=== PATIENT | male | born 1945 | race Caucasian/White ===

== ENCOUNTER → 2023-11-29 08:49 | Outpatient (REF) | payer MEDICARE, OTHER, SELFPAY | LOC: RCS 08:49 | PROVIDERS: ATTENDING PHYSICIAN Nurse Practitioner; FAMILY PHYSICIAN Family Medicine | DX: E78.5 Hyperlipidemia, unspecified (principal); I10 Essential (primary) hypertension; I45.10 Unspecified right bundle-branch block; R01.1 Cardiac murmur, unspecified | CPT/HCPCS: 93306 ==

== ENCOUNTER 2024-09-25 06:19 | Day surgery (SDC) | payer MEDICARE, OTHER, SELFPAY | END 2024-09-25 09:03 | disposition home or self-care (01) | LOC: GI 06:19 | PROVIDERS: ATTENDING PHYSICIAN Internal Medicine Gastroenterology | DX: Z12.11 Encounter for screening for malignant neoplasm of colon (principal); D12.2 Benign neoplasm of ascending colon; K57.30 Diverticulosis of large intestine without perforation or abscess without bleeding; K64.8 Other hemorrhoids | CPT/HCPCS: 45385; 88305 ==

== ENCOUNTER 2025-02-10 19:37 | Emergency (ER) | payer MEDICARE, OTHER, SELFPAY ==
[2025-02-10 19:47] VITALS: BP 176/84
[2025-02-10 20:09] LABS: Hematocrit 45.6 % (39.0-52.0); Hemoglobin 15.1 g/dL (13.0-18.0); Mean Corp Hgb Conc. 33.1 g/dL (33.0-37.0); Mean Corpuscular Volume 89.6 fL (80.0-94.0); Nucleated Red Blood Cells % 0 % (-); Platelet Count 276 10^3/uL (130-400); Red Cell Dist. Width 14.0 % (11.5-14.5)
[2025-02-10 20:18] LABS: INR 1.11; PT 14.6 Sec (11.4-14.6)
[2025-02-10 20:19] LABS: APTT 28.2 Sec (23.4-35.0)
[2025-02-10 20:28] LABS: ALT (SGPT) 28 U/L (0-50); AST (SGOT) 24 U/L (17-59); Albumin 4.6 g/dl (3.5-5.0); Alkaline Phosphatase 133 U/L (38-126); Blood Urea Nitrogen 21 mg/dl (9-20); Calcium 9.7 mg/dl (8.4-10.2); Carbon Dioxide 27 mmol/L (22-30); Chloride 104 mmol/L (98-107); Glucose 93 mg/dl (70-99); Potassium 4.2 mmol/L (3.5-5.1); Sodium 138 mmol/L (135-145); Total Protein 7.3 g/dl (6.3-8.2); eGFR > 60.00
[2025-02-10 22:39] VITALS: BP 169/87
[2025-02-10 22:40] VITALS: BMI 28.3
[2025-02-10 23:00] VITALS: BP 162/83
--- NOTE | 2025-02-10 23:31 | ED.GENMED ---
History of Present Illness
General
Chief Complaint: Skin Problem
Source: patient
Exam Limitations: none
Time Seen by Provider: 02/10/25 23:30
Nursing documentation reviewed up to this point in time: agreed with
History of Present Illness
History of Present Illness:
Note:
CHIEF COMPLAINT(S)
Bruising on the abdomen.
HISTORY OF PRESENT ILLNESS
The patient is a 80-year-old male with a history of stroke nine years ago, currently taking Plavix (clopidogrel), diverticulitis, hypertension, CVA presenting with unusual yellow bruising on the abdomen, noticed this morning. The patient reports no
pain associated with the bruising and denies any recent trauma to the area. The bruising appeared spontaneously, and he visited an orthopedic doctor noting early-stage arthritis in the left joint. The orthopedic physician directed the patient to
take ibuprofen, 600 mg three times a day, in addition to performing physical therapy, which has not yet started. Although the patient reports improved mobility, the unusual bruising prompted a visit to urgent care, resulting in a referral to this
facility. The patient mentions he has not experienced any similar bruising episodes before.
Reportedly, he has been feeling fine overall with no symptoms such as vomiting. Urgent care conducted blood tests, revealing normal blood levels, liver functions, and kidney functions. The healthcare team here noted stable vital signs, and the
patient denies any history of using heating pads or applications to the bruised area. Theres no recollection of any recent events that could have caused the bruising.
CHRONIC MEDICAL CONDITIONS SIGNIFICANTLY AFFECTING CARE
- History of stroke (9 years ago)
- Arthritis
REVIEW OF SYSTEMS
- Gastrointestinal: Bruising present on the abdomen.
- Musculoskeletal: Arthritis in the left joint, improved mobility.
PHYSICAL EXAM
Nursing notes reviewed and vital signs reviewed.
General: Patient is well appearing and in no acute distress; non-toxic
Skin: Warm and dry, no rashes or lesions, small area of bruising noted in the epigastrium
Head: Normocephalic, atraumatic
Eyes: Sclera non-icteric. EOMs intact.
Cardiac: Regular rate and rhythm, no murmurs
Peripheral Vascular: No lower extremity swelling or edema
Pulm: Normal respiratory effort, no wheezes, rales, rhonchi
Abdomen: No abdominal tenderness to palpation
Neuro: CN II-XII intact, no focal neurologic deficits.
Psychiatric: Appropriate mood and affect.
PROBLEM LIST
Acute:
- Unexpected abdominal bruising
Chronic:
- History of stroke
- Arthritis
PLAN
- CBC, CMP, PT, INR, lipase
DIFFERENTIAL DIAGNOSIS
The Differential Diagnosis includes, in no particular order and is not limited to:
- Spontaneous hematoma due to anticoagulation
- Pancreatitis
- Trauma (unrecognized minor trauma or bumping)
- Coagulopathy
- Liver disease (though liver function tests are normal)
- Abnormal platelet function or count
- Connective tissue disorder
- Drug-induced bruising (from clopidogrel and ibuprofen combination)
- Vascular abnormalities
- Hemophilia or other bleeding disorders
Disposition:
SUMMARY OF ENCOUNTER
A 80-year-old male with a past medical history of stroke, currently on clopidogrel, presented to the emergency department with concerns of yellow bruising (ecchymosis) to the upper abdomen. The bruising was noted after starting Advil (ibuprofen) for
osteoarthritis. The patient reported no pain or history of trauma to the abdomen. He was previously evaluated at an urgent care facility and was advised to visit the emergency department. The physical exam revealed no abdominal tenderness he does
have a small area of epigastric bruising. Laboratory work, including lipase, was normal and showed no signs of acute internal bleeding.
PLAN
- Discontinue ibuprofen to avoid further risk of bruising given the patients anticoagulation with clopidogrel.
- Prescribe a Medrol dose pack (methylprednisolone) for acute pain management instead of ibuprofen.
- The patient is advised to follow up with orthopedic services for continued management of osteoarthritis.
INDEPENDENT REVIEW OF LABS AND INTERPRETATION OF TESTS
My independent review of lab results indicates that lipase is normal, and other blood work shows no indications of acute internal bleeding.
PATIENT EDUCATION AND COUNSELING
The patient was advised to discontinue the use of ibuprofen due to an increased risk of bleeding while on clopidogrel. The use of methylprednisolone as an alternative for pain management was discussed. The importance of follow-up with the orthopedic
specialist was emphasized.
FOLLOW-UP INSTRUCTIONS
The patient is to follow up with orthopedic services as planned.
MEDICATION RECONCILIATION
- Clopidogrel (Plavix) for stroke prevention.
- Discontinue ibuprofen due to risk of bleeding.
- Methylprednisolone (Medrol dose pack) prescribed for acute pain management.
MEDICAL DECISION MAKING
- Number and Complexity of Problems Addressed: Chronic conditions affecting care include a history of stroke and arthritis. Differential diagnoses include spontaneous hematoma due to anticoagulation, pancreatitis, trauma, coagulopathy, liver
disease, abnormal platelet function, connective tissue disorder, drug-induced bruising, vascular abnormalities, and hemophilia.
- Data:
Category 1:
- Lab tests reviewed include CBC and lipase levels; normal results with no signs of internal bleeding or pancreatitis.
- Risk:
- Prescription drug management involving the discontinuation of ibuprofen due to bleeding risk with clopidogrel.
- Consideration of Admission/Observation: Escalation of care including admission/observation was considered given the complexity and risk of the patients presenting complaint, exam findings, and underlying comorbidities. However, ultimately I feel
the patient is safe for outpatient management with close follow-up. Reasoning: Work-up reassuring, does not reveal any acute life/organ threatening processes, patients symptoms well controlled upon reevaluation, reexamination is reassuring, vitals
are stable, patient agreeable with discharge, reliable for follow-up.
DIAGNOSIS
- Ecchymosis, unspecified (R23.3)
- Osteoarthritis, unspecified site (M19.90)
Past History
Past History
ED Past Medical History: CVA, HTN, Other (CHRISTIANO) and Other (GI bleeding); Negative IDDM or NIDDM
ED Past Surgical History: Other (two hernia repairs)
Social History
Tobacco: Non-smoker
Alcohol: Occasional
Drug: None
Personal:
Living: with family
Employment: Employed
Family History
Family History: Other (Sister with stroke)
Review of Systems
Review of Systems
All Other Systems: ROS reviewed and negative except as documented in HPI and ROS
Phy Exam
Physical Exam
Physical Exam:
see hpi
Course
Orders/Labs/Results
Orders:
Orders
02/10/25 20:00
Complete Blood Count/With Diff Urgent
Comprehensive Metabolic Panel Urgent
Comment: .
Lipase Urgent
Comment: ADD ON
PTT Urgent
Prothrombin Time Urgent
02/10/25 23:40
Add On- LAB Urgent
Tests Added?: lipase
Abnormal Lab Results
02/10/25
20:00
MPV 11.2 H fL
(7.4-10.4)
Absolute Monos (auto) 0.8 H 10^3/uL
(0.1-0.6)
BUN 21 H mg/dl
(9-20)
Alkaline Phosphatase 133 H U/L
(38-126)
02/10/25 20:00
02/10/25 20:00
Vital Signs
Initial and Last Documented VS:
Initial Vital Signs
Temp Pulse Resp BP Pulse Ox
98.1 F 57 20 176/84 95
02/10/25 19:47 02/10/25 19:47 02/10/25 19:47 02/10/25 19:47 02/10/25 19:47
Last Documented Vital Signs
Temp Pulse Resp BP Pulse Ox
98.1 F 53 23 158/87 95
02/10/25 19:47 02/11/25 00:30 02/10/25 23:30 02/11/25 00:00 02/11/25 00:30
*Pulse Oximetry
SaO2: 91
Oxygen Mode of Delivery: Room air
Patient hypoxic: no
*Critical Care Note
Total Time (30-74mins, 75-104mins- exclusive of procedures): Not Applicable
ED Attending Note
-
Portions of this chart may have been created with voice recognition software.� Occasional wrong word or��sound alike� substitutions may have occurred due to the inherent limitations of voice recognition software.
Discharge Plan
Departure
Patient Disposition: Home (Routine Discharge)
Date of Disposition: 02/11/25
Time of Disposition: 00:38
Patient with high blood pressure during this ER visit?: Yes
Condition: Good
Discharge Problem:
Superficial bruising of abdominal wall
Instructions: Taking care of bruises, BLOOD PRESSURE
Prescriptions:
New
methylprednisolone [Medrol (Manuelito)] 4 mg tablets,dose pack
See Rx Instructions .ROUTE .COMPLEX Qty: 21 0RF
Rx Instructions:
orally per package directions
No Action
verapamil [Calan SR] 120 MG tablet extended release
120 mg PO DAILY
fiber 1 EACH tablet
2 tab PO HS
hydrochlorothiazide 25 MG tablet
25 mg PO DAILY
vitamin E 400 UNIT capsule
400 unit PO DAILY
chlorpheniramine-acetaminophen [Coricidin HBP Cold and Flu] 1 EACH tablet
1 tab PO DAILY
atorvastatin 40 MG tablet
40 mg PO HS
clopidogrel 75 MG tablet
75 mg PO DAILY Qty: 21 0RF
Rx Instructions:
Ok to resume today
Referrals:
Aure Maxwell DO [Family Provider, Family Practice]
Activity Restrictions/Additional Instructions:
PLEASE RETURN TO THE ER SHOULD YOU DEVELOP CHEST PAIN, SHORTNESS OF BREATH, NAUSEA OR VOMITING, ABDOMINAL PAIN, DARK TARRY STOOLS, RECTAL BLEEDING, DARK TARRY STOOLS, VOMITING BLOOD, OR ANY OTHER SIGNS OR SYMPTOMS CONCERNING TO YOU.
Please follow up with your primary care provider. Please follow up with Dr. Garcia. Please stop taking the ibuprofen. Medrol Dosepak has been sent to your pharmacy, please follow package instructions for dosing.
Interventions
Interventions:
*Risk Screen - Suicide Last Done: 02/10/25 19:47
*General Assessment Last Done: 02/10/25 19:47
*Neglect/Abuse Screening Last Done: 02/10/25 19:47
*ED- Fall Risk Assessment Last Done: 02/10/25 19:47
*ED COVID-19 Vaccine History Last Done: 02/10/25 19:47
*Nursing Disposition Last Done: 02/11/25 00:50
ED-Skin Assessment Last Done: 02/10/25 22:48
Discharge Date and Time
Discharge Date/Time: 02/11/25 00:50
Print Language: TURKISH
[2025-02-11] VITALS: BP 158/87
[2025-02-11 00:11] LABS: Lipase 67 U/L (23-300)
== END 2025-02-11 00:50 | disposition home or self-care (01) ==
LOC: EMR 19:37
PROVIDERS: Emergency Medicine; EMERGENCY PHYSICIAN Emergency Medicine; FAMILY PHYSICIAN Family Medicine
DX: S30.1XXA Contusion of abdominal wall, initial encounter (principal); X58.XXXA Exposure to other specified factors, initial encounter; Z86.73 Personal history of transient ischemic attack (TIA), and cerebral infarction without residual deficits; I10 Essential (primary) hypertension; G47.33 Obstructive sleep apnea (adult) (pediatric); Z79.02 Long term (current) use of antithrombotics/antiplatelets
CPT/HCPCS: 99283; 80053; 83690; 85025; 85610; 85730

== ENCOUNTER 2025-07-08 06:14 | Day surgery (SDC) | payer MEDICARE, OTHER, SELFPAY ==
--- NOTE | 2025-06-03 10:18 | CM ---
Demographics: confirmed
Living situation: lives independently with
Support Person Post Operatively:
History of
VN: no
SNF: no
Outpatient: [facility] [place], Patient advised to make appointment for 1/2
Has patient purchased required equipment: patient instructed to purchase equipment at [facility]
PCP: confirmed
Pharmacy: [facility]
Post Operative Discharge Plan: Home SDS with [facility] and then transition to outpatient PT
[2025-06-17 13:18] VITALS: BMI 29.2
[2025-06-17 13:50] LABS: Hematocrit 49.0 % (39.0-52.0); Hemoglobin 16.4 g/dL (13.0-18.0); Mean Corp Hgb Conc. 33.5 g/dL (33.0-37.0); Mean Corpuscular Volume 92.5 fL (80.0-94.0); Platelet Count 323 10^3/uL (130-400); Red Cell Dist. Width 13.8 % (11.5-14.5)
[2025-06-17 14:18] VITALS: BMI 29.2
[2025-06-17 14:33] LABS: ALT (SGPT) 26 U/L (0-50); AST (SGOT) 25 U/L (17-59); Albumin 4.8 g/dl (3.5-5.0); Alkaline Phosphatase 160 U/L (38-126); Blood Urea Nitrogen 12 mg/dl (9-20); Calcium 10.2 mg/dl (8.4-10.2); Carbon Dioxide 26 mmol/L (22-30); Chloride 104 mmol/L (98-107); Estimated Creatinine Clearance 55 ml/min; Glucose 91 mg/dl (70-99); Potassium 4.4 mmol/L (3.5-5.1); Sodium 138 mmol/L (135-145); Total Protein 7.8 g/dl (6.3-8.2); eGFR > 60.00
[2025-06-17 14:40] LABS: Glycohemoglobin (HgbA1c) 5.7 % (4.0-5.9)
[2025-06-17 16:54] LABS: Vitamin D, 25-OH*** 42.2 ng/mL (30-80)
--- NOTE | 2025-06-24 11:36 | VNURNOTE ---
Patient is scheduled for an elective L THR on 07/08 - he is a same day patient with Dr Garcia . Spoke with patient prior to surgery. Introduced role of [facility] Liaison. Patient reports that he lives with his .
He has DME including a rolling walker.
PCP is Dr Aure Maxwell
Discussed [facility] joint protocol and post surgical plans.
Reviewed that he will have VN services initially and will then start outpatient PT.
Patient selects [facility] for his home care needs and would like to go to Outpt PT at [place] for outpatient PT. Scheduled TBD. He stated he called 2 weeks ago and left a message. Advised pt to call them again and to schedule for the FRI of the
surgical week (07/11). Pt verbalized understanding. Advised patient to bring rolling walker with him on day of surgery.
Referral placed in [facility].
Plan: [facility] per [facility] joint protocol 07/08 then outpt PT - TBD
[2025-07-08] VITALS (21 sets, daily range): BP systolic 75–151; BP diastolic 53–87; BMI 29.2
[2025-07-08] MEDS: BACTROBAN NASAL 1 GRAM NASAL (08:48)
[2025-07-08] MEDS: CELEBREX 200 MG PO (08:48)
[2025-07-08] MEDS: NORMOSOL-R/PLASMALYTE-A 1000 IV (08:49)
[2025-07-08] MEDS: VANCOCIN 530 MG IV (09:05)
[2025-07-08] MEDS: TYLENOL 1000 MG PO (09:17)
--- NOTE | 2025-07-08 09:21 | W.DS.TRANS ---
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
-
Discharge Instructions:
Discharge Diagnosis/Procedures [facility] Dr Garcia 07/08/25
Diet As tolerated
Activity With Walker
Driving Restrictions No driving
Bathing Restrictions OK to Shower
Other Services PT
Instructions:
Stand-Alone Forms: SDS Total Hip and Knee D/C
Changes to Home Medications: Yes
Discharge Medications:
DC Medications w/original date entered in [facility]
atorvastatin 40 mg tablet 40 mg PO DAILY 08/03/20
clopidogrel 75 mg tablet 75 mg PO DAILY ##21 08/03/20
Held on 07/08/25. Instructions: Resume on 07/10/25.
allopurinol 300 mg tablet 300 mg PO DAILY 06/13/25
cholecalciferol (vitamin D3) 25 mcg (1,000 unit) capsule (Vitamin D3) 25 mcg PO DAILY 06/13/25
famotidine 20 mg tablet 20 mg PO BID 06/13/25
inulin-sorbitol 2 gram chewable tablet 2 tab PO QPM 06/13/25
Held on 07/08/25. Instructions: Resume on 07/16/25.
mecobalamin (vitamin B12) 1,000 mcg chewable tablet (B12 Active) 1,000 mcg PO DAILY 06/13/25
verapamil 120 mg tablet,extended release 120 mg PO DAILY 06/13/25
mupirocin 2 % topical ointment 1 applic topical BID infection prevention #1 tube 06/16/25
dexamethasone 4 mg tablet 4 mg PO BID inflammation #6 tabs 06/17/25
gabapentin 300 mg capsule 300 mg PO HS sleep/pain #10 caps 06/17/25
ondansetron 4 mg disintegrating tablet 4 mg PO Q6H PRN n/v #20 tabs 06/17/25
oxycodone 5 mg tablet 5 mg PO Q6H PRN 1 tab moderate pain, 2 tabs severe pain #30 tabs 06/17/25
acetaminophen 325 mg tablet (Tylenol) 650 mg (2 x 325 mg) PO QID #0 tabs 07/08/25
aspirin 325 mg tablet 325 mg PO DAILY blood clot prevention #1 tab 07/08/25
docusate sodium 100 mg capsule (Colace) 100 mg PO BID stool softner #1 cap 07/08/25
losartan 100 mg tablet 100 mg PO HS #0 tabs 07/08/25
magnesium hydroxide 400 mg/5 mL oral suspension (Milk of Magnesia) 30 ml PO HS PRN constipation #1 mL 07/08/25
penicillin V potassium 1 tab PO QID dental procedure 07/08/25
sennosides 8.6 mg tablet (Senokot) 17.2 mg (2 x 8.6 mg) PO BID laxative #2 tabs 07/08/25
Home Medication Changes
mupirocin 2 % topical ointment 1 applic topical BID infection prevention #1 tube 06/16/25
dexamethasone 4 mg tablet 4 mg PO BID inflammation #6 tabs 06/17/25
gabapentin 300 mg capsule 300 mg PO HS sleep/pain #10 caps 06/17/25
ondansetron 4 mg disintegrating tablet 4 mg PO Q6H PRN n/v #20 tabs 06/17/25
oxycodone 5 mg tablet 5 mg PO Q6H PRN 1 tab moderate pain, 2 tabs severe pain #30 tabs 06/17/25
acetaminophen 325 mg tablet (Tylenol) 650 mg (2 x 325 mg) PO QID #0 tabs 07/08/25
aspirin 325 mg tablet 325 mg PO DAILY blood clot prevention #1 tab 07/08/25
docusate sodium 100 mg capsule (Colace) 100 mg PO BID stool softner #1 cap 07/08/25
losartan 100 mg tablet 100 mg PO HS #0 tabs 07/08/25
magnesium hydroxide 400 mg/5 mL oral suspension (Milk of Magnesia) 30 ml PO HS PRN constipation #1 mL 07/08/25
penicillin V potassium 1 tab PO QID dental procedure 07/08/25
sennosides 8.6 mg tablet (Senokot) 17.2 mg (2 x 8.6 mg) PO BID laxative #2 tabs 07/08/25
Pending Results: No
--- NOTE | 2025-07-08 11:56 | OR.RPT ---
Operative Report
Operative Report
Orthopaedic Surgery Operative Note
DATE OF OPERATION: 07/08/2025
PREOPERATIVE DIAGNOSES: Osteoarthritis, left hip
POSTOPERATIVE DIAGNOSES: Same
OPERATION PERFORMED: Left total hip arthroplasty.
SURGEON: Basil Garcia MD
DATA WAREHOUSING SPECIALIST: Jarrod Mayo PA-C who helped with patient and limb positioning and retraction
ANESTHESIA: Spinal
COMPLICATIONS: None.
ESTIMATED BLOOD LOSS: 50 mL.
DRAINS: None
SPECIMEN: None
FINDINGS: Advanced articular cartilage wear on the femoral head and acetabulum.
IMPLANTS:
Biomet G7 Acetabular Shell, cluster hole, size 54
Biomet G7 Highly Crosslinked PE Liner, neutral
Seamus M/L Taper femoral stem, size 10 with standard neck length and standard offset
Biolox Ceramic Head, size 40mm +0
INDICATIONS: The patient presented to my office with debilitating left hip pain due to osteoarthritis. We reviewed the natural history of this problem, as well as the risks, benefits, and alternatives of various treatment options. The patient
exhausted all nonoperative treatment options and wished to proceed with hip replacement surgery. The patient understood the risks which included, but were not limited to, bleeding, infection, failure to relieve pain, more pain than preop, damage to
blood vessels and nerves, need for reoperation, mechanical failure of the implants, wound healing problems, stiffness, instability, blood clot, pulmonary embolism, myocardial infarction, pneumonia, arrhythmia, CVA, and . The patient accepted
these risks and wished to proceed. All questions were answered, and informed consent was obtained.
PROCEDURE IN DETAIL: The patient was identified in the preoperative holding area. The left hip was identified as the operative site. The patient was taken in the operating room and transferred to the operative table. Spinal anesthesia was
performed. IV antibiotics and tranexamic acid were administered. The patient was placed in the lateral position with Stulberg hip positioners. Axillary roll was placed. The down leg was well padded. All bony prominences were well padded. The
operative limb was prepped and draped in the usual sterile fashion.
Time out was performed. A posterolateral approach to the hip was used. The skin incision was centered over the greater trochanter. This was taken down sharply through subcutaneous tissues. Meticulous hemostasis was achieved throughout the case with
electrocautery. We split the fascia madhuri in line with skin incision. I split the gluteus jaqui bluntly. We cauterized all crossing vessels as we split it. I palpated the sciatic nerve and made sure it was well posterior in the operative field. It
was protected throughout the case.
I performed a partial bursectomy to identify the short external rotators. The gluteus medius and minimus were identified and retracted anteriorly. I incised the piriformis tendon and conjoint tendon at their insertions. These were tagged for later
repair. I then performed a trapezoidal capsulotomy. The edges were tagged for later repair. I referenced the cut edge of the capsular flap to 2 fixed points on the greater trochanter for assistance with recreation of limb length and offset. I then
dislocated the hip posteriorly. I performed a femoral neck osteotomy approximately 10 mm above the lesser trochanter, as per preoperative templating. The femoral head measured 49 mm in outer diameter. The distance between the neck cut and center of
the femoral head was measured to be 40mm. I placed a curve hohmann retractor over the anterior lip of the acetabulum between the labrum and the anterior hip capsule. A second retractor was placed inferiorly just distal to the transverse acetabular
ligament. Circumferential view of the acetabulum was achieved. I incised the labrum and pulvinar with electrocautery. I started with a 49 mm reamer and reamed down to the medial wall. I then sequentially reamed up to a 53mm reamer. This gave a nice
bed of bleeding bone with excellent column support anteriorly and posteriorly. I impacted the acetabular shell in approximately 40 degrees of abduction and 20 degrees of anteversion. I matched the anteversion of the transverse acetabular ligament. I
also made sure that the anterior rim of the socket was not proud of the anterior wall to minimize the chance of iliopsoas tendinitis. I confirmed the cup was well-seated. I then impacted a neutral liner and confirmed it was well seated with the
locking mechanism.
On the femoral side, I use a box osteotome to open the proximal starting point. I found the canal with a Charnley awl and a lateralizing reamer. I then used the Seamus M/L taper broaches sequentially to prepare the femoral canal. The size 10 came to
a stop at the desired level and had excellent axial and rotational stability. We trialed with a trial ball head. The hip was taken through a complete range of motion. It was noted to be stable in extension without impingement. It was stable in the
position of sleep and in flexion with internal rotation. The limb length and offset were checked compared to the capsular flap and was appropriate. The measured length between the lesser trochanter and center of the femoral head was 40mm.
I removed the trials. I impacted the femoral implant to match the [place] version. It had excellent axial and rotational stability. Trial ball head was placed, and I reduced the hip and took the hip through a complete range of motion. There was no
impingement in external rotation and extension. Position of sleep was stable. At 90 degrees of flexion and slight adduction, the hip could be internally rotated to 90 degrees with no subluxation. I palpated the sciatic nerve, which was tension free
and unharmed. Based on our capsular flap measurement, we had restored the offset and leg length. The trial ball head was removed, and the final ball head was impacted onto a clean and dry Collins taper. The hip was reduced.
A dilute betadine soak was performed for approximately 3 minutes, and then the hip was copiously irrigated. I repaired the capsule, piriformis, and conjoint tendon with #2 Ethibond to drill holes in the greater trochanter. Local anesthetic was
injected. The fascia madhuri was closed with #1 PDS in running fashion. The subcutaneous tissues were closed with 2-0 monofilament in running fashion. The skin was reapproximated with 3-0 monofilament subcuticular suture. I placed a skin glue dressing
followed by a Mepilex Ag dressing. The patient awoke from anesthesia without difficulty. Sponge and instrument counts were correct x2 at the end of the case.
I was present and participated in the entire procedure. I checked leg length at the ankles after transfer on the bed which was equal. The patient was sent to the recovery room in stable condition.
Nazario Garcia MD
[2025-07-08] MEDS: ANCEF 5 IV (14:16)
== END 2025-07-08 16:00 | disposition home or self-care (01) ==
LOC: SDS 06:14
PROVIDERS: ATTENDING PHYSICIAN Orthopaedic Surgery; FAMILY PHYSICIAN Family Medicine; REFERRING PHYSICIAN Internal Medicine
DX: M16.12 Unilateral primary osteoarthritis, left hip (principal); M84.452A Pathological fracture, left femur, initial encounter for fracture; Q21.12 Patent foramen ovale; Z98.890 Other specified postprocedural states
CPT/HCPCS: 27130; 36415; 73502; 80053; 82306; 83036; 85027; 87070; 87147; 97162; C1776